=== PATIENT | male | born 1995 ===

== ENCOUNTER 2018-08-28 01:30 | Emergency (ER) | payer SELFPAY ==
[~2018-08-28] VITALS: Ht 152.4 cm; Wt 66.0 kg
[~2018-08-28 01:30] MED LIST: FAMOTIDINE 20MG/2ML VIAL IV ONE; KETOROLAC 30MG/ML VIAL IV STA; MAGNESIUM/ALUMINUM HYDROXIDE/SIMETHICONE 30ML UDC PO ONE; MORPHINE SULFATE 4 MG/ML CPJ (NOT FOR IM USE) IV STA; ONDANSETRON HCL 4MG/2ML INJ IV STA; SODIUM CHLORIDE 0.9% 1,000 ML IV ONE
[2018-08-28 02:17] LABS: BASOPHILS % 0.4 % (0.0-2.0); EOSINOPHILS % 0.9 % (0.0-5.0); HEMATOCRIT. 44.8 % (42.0-52.0); HEMOGLOBIN. 15.8 g/dL (14.0-18.0); LYMPHOCYTES % 21.5 % (20.0-50.0); MEAN CORPUSCULAR HEMOGLOBIN 31.6 pg (28.0-32.0); MEAN CORPUSCULAR VOLUME 89.6 fL (80.0-94.0); MEAN PLATELET VOLUME 11.1 fl (7.4-10.4); NEUTROPHILS % 71.2 % (40.0-76.0); PLATELET 169 x1000/uL (130-400); RED CELL DISTRIBUTION WIDTH 13.4 % (11.6-14.6)
[2018-08-28 02:27] LABS: INR 1.1; PARTIAL THROMBOPLASTIN TIME 21.7 sec (23.4-31.0); PROTHROMBIN TIME 10.6 sec (9.1-11.1)
[2018-08-28 02:30] LABS: CHLORIDE 99 mEq/L (98-107)
[2018-08-28 02:37] LABS: ETHANOL BLOOD < 10 mg/dL
[2018-08-28 02:41] LABS: CLARITY URINE TURBID (CLEAR); COLOR URINE YELLOW (YELLOW); KETONES URINE NEGATIVE (NEGATIVE); LEUKOCYTE ESTERASE URINE NEGATIVE (NEGATIVE); NITRITE URINE NEGATIVE (NEGATIVE); OCCULT BLOOD URINE NEGATIVE (NEGATIVE); PROTEIN URINE 1+ (NEGATIVE); SPECIFIC GRAVITY URINE 1.031 (1.005-1.030)
[2018-08-28 02:54] LABS: *AMPHETAMINES SCREEN URINE NEGATIVE (NEGATIVE); *BARBITURATES SCREEN URINE NEGATIVE (NEGATIVE); *BENZODIAZEPINES SCREEN URINE NEGATIVE (NEGATIVE); *COCAINE SCREEN URINE NEGATIVE (NEGATIVE); CANNABINOID URINE SCREEN PRESUMTIVE POSITIVE (NEGATIVE); METHADONE URINE SCREEN NEGATIVE (NEGATIVE); OPIATES URINE SCREEN NEGATIVE (NEGATIVE); PHENCYCLIDINE URINE SCREEN NEGATIVE (NEGATIVE)
[2018-08-28] MEDS ORDERED: SODIUM CHLORIDE 0.9% 1,000 ML IV ONE (03:28)
[2018-08-28 04:57] VITALS: BP 104/67
== END 2018-08-28 05:36 | disposition home or self-care (01) ==
LOC: ER 01:30
DX: K29.70 Gastritis, unspecified, without bleeding (principal); N20.0 Calculus of kidney; F12.10 Cannabis abuse, uncomplicated
CPT/HCPCS: 36415; 71045; 74176; 80053; 80305; 81003; 83690; 84484; 85025; 85610; 85730; 96361; 96374; 96375; 99285; G0482; J1885; J2270; J2405; J3490; J7030